=== PATIENT | female | born 1985 | race Caucasian/White ===

== ENCOUNTER → 2020-09-01 | Outpatient (CLI) | payer MEDICAID ==
[2020-09-01 09:12] LABS: EOS # 0.3 (0.04-0.40); HEMATOCRIT 45.1 % (37.0-47.0); HEMOGLOBIN 13.3 g/dL (12.5-16.0); LYMPH# 2.8 (1.50-4.00); MEAN CELL VOLUME 89 fl (78-100); MEAN CORPUSCULAR HEMOGLOBIN 26 pg (27-31); MEAN CORPUSCULAR HGB CONC 30 g/dL (33-37); MEAN PLATELET VOLUME 9.4 fl (7.4-10.4); MONO # 0.6 (0.20-0.80); NEU # 5.7 (1.40-6.50); PLATELET COUNT 329 K/mm3 (130-400); RED BLOOD COUNT 5.08 M/mm3 (4.10-5.30); WHITE BLOOD COUNT 9.4 K/mm3 (4.8-10.8)
[2020-09-01 09:25] LABS: POTASSIUM 4.3 mmol/L (3.5-5.1); SODIUM 140 mmol/L (136-145)
[2020-09-01 09:27] LABS: CALCIUM 8.9 mg/dL (8.3-10.5)
[2020-09-01 09:28] LABS: GLUCOSE 119 mg/dL (65-105); TOTAL PROTEIN 8.3 g/dL (6.4-8.3)
[2020-09-01 09:29] LABS: CARBON DIOXIDE 27 mmol/L (22-29)
[2020-09-01 09:30] LABS: TOTAL BILIRUBIN 0.3 mg/dL (0.2-1.2)
[2020-09-01 09:33] LABS: AST-SGOT 29 U/L (5-34)
[2020-09-01 09:35] LABS: ALT/SGPT 32 U/L (0-55)
== END ==
LOC: LAB 09:01
PROVIDERS: Physician Assistant
DX: I10 Essential (primary) hypertension (principal); E66.01 Morbid (severe) obesity due to excess calories; E03.9 Hypothyroidism, unspecified; K21.9 Gastro-esophageal reflux disease without esophagitis; I63.9 Cerebral infarction, unspecified; E78.5 Hyperlipidemia, unspecified; K90.9 Intestinal malabsorption, unspecified; R73.9 Hyperglycemia, unspecified

== ENCOUNTER → 2020-12-07 | Outpatient (CLI) | payer MEDICAID | LOC: LAB 16:18 | DX: E03.9 Hypothyroidism, unspecified (principal) ==

== ENCOUNTER → 2021-03-24 | Outpatient (CLI) | payer MEDICAID | LOC: LAB 12:26 | DX: E03.9 Hypothyroidism, unspecified (principal); E55.9 Vitamin D deficiency, unspecified ==

== ENCOUNTER → 2021-05-03 | Outpatient (CLI) | payer MEDICAID | LOC: RAD 16:09 | DX: R05 Cough (principal) ==

== ENCOUNTER → 2022-02-01 | Outpatient (CLI) | payer MEDICAID | LOC: LAB 14:25 | DX: E03.9 Hypothyroidism, unspecified (principal); E66.9 Obesity, unspecified; E55.9 Vitamin D deficiency, unspecified ==

== ENCOUNTER → 2023-08-02 | Outpatient (CLI) | payer MEDICAID ==
[~2023-08-02] MED LIST: ALBUTEROL SULF6.7 GM IN; ELIQUIS5 MG PO; FENESIN IR400 MG PO; FLOVENT HFA12 GM; FUROSEMIDE20 MG PO; LASIX20 M1 PO; LEVOTHYROXINE0.05 MG PO; LEVOTHYROXINE300 MCG PO; PANTOPRAZOLE SO40 MG PO; XARELTO STARTER20 MG PO; ZESTRIL5 M1 PO; [UNRECOGNIZED DRUG - OTHER] PO
[2023-08-02 16:49] LABS: BASO # 0.01 K/mm3 (0.02-0.10); EOS # 0.24 K/mm3 (0.04-0.40); HEMATOCRIT 47.3 % (37.0-47.0); HEMOGLOBIN 13.1 g/dL (12.5-16.0); MEAN CELL VOLUME 92 fl (78-100); MEAN CORPUSCULAR HEMOGLOBIN 25 pg (27-31); MEAN CORPUSCULAR HGB CONC 28 g/dL (33-37); MEAN PLATELET VOLUME 9.3 fl (7.4-10.4); NEU # 3.51 K/mm3 (1.40-6.50); PLATELET COUNT 230 K/mm3 (130-400); RED BLOOD COUNT 5.17 M/mm3 (4.10-5.30); RED CELL DISTRIBUTION WIDTH 20.9 % (11.5-14.5); WHITE BLOOD COUNT 6.1 K/mm3 (4.8-10.8)
[2023-08-02 16:56] LABS: ALBUMIN 3.8 g/dL (3.5-5.0); POTASSIUM 3.5 mmol/L (3.5-5.1)
[2023-08-02 16:57] LABS: CALCIUM 10.1 mg/dL (8.3-10.5)
[2023-08-02 16:59] LABS: TOTAL PROTEIN 7.4 g/dL (6.4-8.3)
[2023-08-02 17:00] LABS: TOTAL BILIRUBIN 0.9 mg/dL (0.2-1.2)
== END ==
LOC: LAB 16:31
PROVIDERS: Nurse Practitioner
DX: I11.0 Hypertensive heart disease with heart failure (principal); I50.9 Heart failure, unspecified; E66.9 Obesity, unspecified; E55.9 Vitamin D deficiency, unspecified; R73.03 Prediabetes; E03.9 Hypothyroidism, unspecified; F32.A Depression, unspecified; Z86.711 Personal history of pulmonary embolism

== ENCOUNTER → 2024-04-10 | Outpatient (CLI) | payer MEDICAID ==
[2024-06-27 14:39] LABS: ALBUMIN 4.1 g/dL (3.5-5.0); CALCIUM 9.7 mg/dL (8.3-10.5); TOTAL BILIRUBIN 0.9 mg/dL (0.2-1.2); TOTAL PROTEIN 7.6 g/dL (6.4-8.3)
[2024-06-27 14:40] LABS: BASO # 0.03 K/mm3 (0.02-0.10); EOS # 0.36 K/mm3 (0.04-0.40); EOS % 4.5 % (1.0-5.0); HEMATOCRIT 51.1 % (37.0-47.0); HEMOGLOBIN 14.9 g/dL (12.5-16.0); LYMPH# 2.29 K/mm3 (1.50-4.00); MEAN CELL VOLUME 98 fl (78-100); MEAN CORPUSCULAR HEMOGLOBIN 29 pg (27-31); MEAN CORPUSCULAR HGB CONC 29 g/dL (33-37); MEAN PLATELET VOLUME 10.1 fl (7.4-10.4); MONO # 0.64 K/mm3 (0.20-0.80); NEU # 4.61 K/mm3 (1.40-6.50); PLATELET COUNT 214 K/mm3 (130-400); RED BLOOD COUNT 5.21 M/mm3 (4.10-5.30); RED CELL DISTRIBUTION WIDTH 15.9 % (11.5-14.5); WHITE BLOOD COUNT 7.9 K/mm3 (4.8-10.8)
== END ==
LOC: LAB 14:00
PROVIDERS: Nurse Practitioner
DX: Z00.00 Encounter for general adult medical examination without abnormal findings (principal); E03.9 Hypothyroidism, unspecified; E55.9 Vitamin D deficiency, unspecified

== ENCOUNTER → 2024-08-16 | Outpatient (CLI) | payer MEDICAID ==
[2024-08-16 12:42] LABS: BASO # 0.03 K/mm3 (0.02-0.10); EOS # 0.24 K/mm3 (0.04-0.40); EOS % 3.7 % (1.0-5.0); HEMATOCRIT 44.3 % (37.0-47.0); HEMOGLOBIN 12.7 g/dL (12.5-16.0); LYMPH# 1.48 K/mm3 (1.50-4.00); MEAN CELL VOLUME 106 fl (78-100); MEAN CORPUSCULAR HEMOGLOBIN 30 pg (27-31); MEAN CORPUSCULAR HGB CONC 29 g/dL (33-37); MEAN PLATELET VOLUME 9.7 fl (7.4-10.4); NEU # 4.26 K/mm3 (1.40-6.50); PLATELET COUNT 197 K/mm3 (130-400); RED BLOOD COUNT 4.19 M/mm3 (4.10-5.30); RED CELL DISTRIBUTION WIDTH 14.3 % (11.5-14.5); WHITE BLOOD COUNT 6.5 K/mm3 (4.8-10.8)
[2024-08-16 12:43] LABS: ALBUMIN 3.8 g/dL (3.5-5.0)
[2024-08-16 12:44] LABS: CALCIUM 8.7 mg/dL (8.3-10.5)
[2024-08-16 12:46] LABS: TOTAL PROTEIN 7.3 g/dL (6.4-8.3)
[2024-08-16 12:47] LABS: TOTAL BILIRUBIN 0.7 mg/dL (0.2-1.2)
== END ==
LOC: LAB 12:23
PROVIDERS: Nurse Practitioner
DX: E03.9 Hypothyroidism, unspecified (principal); E55.9 Vitamin D deficiency, unspecified; E66.01 Morbid (severe) obesity due to excess calories

== ENCOUNTER 2025-03-06 14:35 | Emergency (ER) | payer MEDICAID ==
[~2025-03-06] VITALS: Ht 157.5 cm; Wt 213.3 kg
[2025-03-06] MEDS ORDERED: COMBIVENT RESPI1 SPR IH (14:52)
[2025-03-06 15:10] LABS: BASO # 0.02 K/mm3 (0.02-0.10); EOS # 0.12 K/mm3 (0.04-0.40); EOS % 2.6 % (1.0-5.0); HEMATOCRIT 45.3 % (37.0-47.0); HEMOGLOBIN 12.3 g/dL (12.5-16.0); LYMPH# 1.17 K/mm3 (1.50-4.00); MEAN CELL VOLUME 105 fl (78-100); MEAN CORPUSCULAR HEMOGLOBIN 29 pg (27-31); MEAN CORPUSCULAR HGB CONC 27 g/dL (33-37); MEAN PLATELET VOLUME 9.6 fl (7.4-10.4); MONO # 0.52 K/mm3 (0.20-0.80); NEU # 2.71 K/mm3 (1.40-6.50); PLATELET COUNT 150 K/mm3 (130-400); RED CELL DISTRIBUTION WIDTH 17.6 % (11.5-14.5); WHITE BLOOD COUNT 4.6 K/mm3 (4.8-10.8)
[2025-03-06 16:04] LABS: ALBUMIN 3.9 g/dL (3.5-5.0)
[2025-03-06 16:05] LABS: CALCIUM 8.8 mg/dL (8.3-10.5)
[2025-03-06 16:06] LABS: TOTAL PROTEIN 8.6 g/dL (6.4-8.3)
[2025-03-06 16:08] LABS: TOTAL BILIRUBIN 1.1 mg/dL (0.2-1.2)
[2025-03-06] MEDS ORDERED: Heparin 5,000 UNITS/ML 1 ML VIAL IV ONE (16:30)
[2025-03-06 17:06] LABS: D-DIMER 5.36 mg/L FEU (0.15-0.50)
[2025-03-06 17:29] LABS: PARTIAL THROMBOPLASTIN TIME 23.4 SECONDS (21.0-32.0); PROTHROMBIN TIME 11.8 SECONDS (9.0-12.0)
[2025-03-06 18:00] VITALS: BP 118/82
[2025-03-06 18:04] LABS: URINE APPEARANCE CLEAR (CLEAR); URINE COLOR YELLOW (YELLOW); URINE PROTEIN(semi-quant) 1+ (NEGATIVE)
[2025-03-06 18:05] LABS: URINE BILIRUBIN NEGATIVE (NEGATIVE); URINE BLOOD NEGATIVE (NEGATIVE); URINE GLUCOSE NEGATIVE (NEGATIVE); URINE KETONE NEGATIVE (NEGATIVE); URINE LEUKOCYTE ESTERASE NEGATIVE (NEGATIVE); URINE NITRATE NEGATIVE (NEGATIVE); URINE WBC 0-1 /hpf (0-3)
== END 2025-03-06 18:34 | disposition short-term general hospital (02) ==
LOC: ED 14:35
PROVIDERS: Nurse Practitioner
DX: J96.91 Respiratory failure, unspecified with hypoxia (principal); I50.9 Heart failure, unspecified; E66.01 Morbid (severe) obesity due to excess calories; E03.9 Hypothyroidism, unspecified; I45.10 Unspecified right bundle-branch block; Z99.81 Dependence on supplemental oxygen; Z91.148 Patient's other noncompliance with medication regimen for other reason; Z86.711 Personal history of pulmonary embolism; Z68.45 Body mass index [BMI] 70 or greater, adult; Z79.01 Long term (current) use of anticoagulants
CPT/HCPCS: J1644